=== PATIENT | male | born 1965 | race Two or more races ===

== ENCOUNTER 2023-04-30 19:33 | Emergency (ER) | payer OTHER ==
[~2023-04-30] VITALS: Ht 175.3 cm; Wt 72.2 kg
[2023-04-30] MEDS ORDERED: HYDROcodone-ACET 5/325MG TAB PO ONE (21:15)
[2023-04-30] MEDS ORDERED: TETANUS-DIPTH-ACEL PERTUSSIS 0.5ML SYR Tdap IM ONE (21:15)
[2023-04-30] MEDS ORDERED: NEOMYCIN-BACITRACIN-POLYM UNITDOSE PKG TOP OINT TOP ONE (21:15)
[2023-04-30] MEDS ORDERED: MUPI2OIN2 EX (21:23)
[2023-04-30] MEDS ORDERED: IBU600T PO (21:23)
[2023-04-30] MEDS ORDERED: CEPH500C PO (21:23)
[2023-04-30 22:20] VITALS: BP 139/89; PULSE 85; RESP 20; TEMP 98
[2023-04-30 22:22] VITALS: O2SAT 98
== END 2023-04-30 22:22 | disposition home or self-care (01) ==
LOC: ER 19:33
DX: S61.012A Laceration without foreign body of left thumb without damage to nail, initial encounter (principal); I10 Essential (primary) hypertension; E11.9 Type 2 diabetes mellitus without complications; Z79.1 Long term (current) use of non-steroidal anti-inflammatories (NSAID); Z79.899 Other long term (current) drug therapy; W26.8XXA Contact with other sharp object(s), not elsewhere classified, initial encounter; Y93.89 Activity, other specified; Y92.89 Other specified places as the place of occurrence of the external cause; Y99.8 Other external cause status
CPT/HCPCS: 12002; 99283; J2001; 90715